=== PATIENT | female | born 1970 | race Asian ===

== ENCOUNTER → 2018-12-29 | Outpatient (CLI) | payer OTHER, SELFPAY ==
[2018-12-29 10:35] LABS: Absolute Lymphocyte Count 1.79 X10^3/uL (0.83-4.51); Absolute Neutrophil Count 4.3 X10^3/uL (2.0-7.7); Basophil# 0.03 X10^3/uL; Basophil% 0.4 % (0-1); Eosinophil# 0.12 X10^3/uL; Eosinophils% 1.8 % (0-5); Hematocrit 45.9 % (37-47); Hemoglobin 15.3 g/dL (12.0-15.0); Lymphocyte # 1.79 X10^3/ul (4.0); Lymphocyte % 26.1 % (19-41); Mean Corp Hgb Conc 33.3 g/dL (32-36); Mean Corpuscular Hgb 30.7 pg (27.0-32.0); Mean Corpuscular Volume 92.2 fL (81-99); Monocyte# 0.63 X10^3/uL; Monocyte% 9.2 % (0-10); NRBC Flagged by Analyzer 0 % (0-5); Neutrophil # 4.26 X10^3/uL (2.7-7.7); Neutrophil % 62.2 % (47-70); Platelet Count 261 K/mm3 (150-450); RBC Distribution Width CV 12.4 % (11.6-14.6); RBC Distribution Width SD 42.3 fl (35.1-43.9); Red Blood Count 4.98 M/mm3 (4.2-5.4); White Blood Count 6.9 K/mm3 (4.4-11.0)
[2018-12-29 11:15] LABS: ALB/GLOB Ratio 1.1 RATIO (0.9-2.4); AST(SGOT) 21 U/L (15-37); Alanine Aminotransfer ALT/SGPT 8 U/L (13-56); Albumin, Serum 3.9 g/dL (3.2-5.0); Alkaline Phosphatase 61 U/L (45-117); Anion Gap 3 (5-15); BUN 14 mg/dL (7-18); BUN/Creat Ratio 16.3 RATIO (10-20); Calcium,Total 8.9 mg/dL (8.5-10.1); Chloride 111 mmol/L (98-107); Creatinine, Serum 0.86 mg/dL (0.55-1.02); EST Glomerular Filtration Rate 75 mL/min (>60); Est Glom Filt Rate - Afr Amer 91 mL/min (>60); Follicle Stimulating Hormone 8.5 mIU/mL; Globulin 3.7 g/dL (2.2-4.2); Glucose 81 mg/dL (74-106); Luteinizing Hormone 14.8 mIU/mL; Potassium 4.5 mmol/L (3.5-5.1); Protein, Total 7.6 g/dL (6.4-8.2); Sodium Level 139 mmol/L (136-145); Thyroid Stim Hormone (TSH) 0.78 uIU/mL (0.358-3.74)
[2018-12-31 09:16] LABS: Vitamin B12 377 pg/mL (211-911)
== END | disposition home or self-care (01) ==
LOC: LAB 09:25
PROVIDERS: Family Provider Family Medicine; PCP Family Medicine; Referring Provider Family Medicine; Visit Provider Family Medicine
DX: N94.6 Dysmenorrhea, unspecified (principal); R53.83 Other fatigue; R10.9 Unspecified abdominal pain
CPT/HCPCS: 36415; 80053; 82306; 82607; 83001; 83002; 84443; 85025; 87086; 87088

== ENCOUNTER → 2019-09-09 15:08 | Outpatient (CLI) | payer OTHER, SELFPAY ==
--- NOTE | 2019-09-09 15:11 | RAD_ITS ---
STUDY: X-RAY - ABDOMEN/PELVIS REASON FOR EXAM: Female, 49 years old. PAIN THROUGHOUT ABDOMEN TECHNIQUE: AP supine and upright views of the abdomen and pelvis. COMPARISON: None. FINDINGS: Normal visualized lung bases. There is an unremarkable bowel gas pattern. There is no demonstrated free abdominal air. The visualized liver, spleen and kidneys are grossly normal in size and morphology. Normal soft tissue structures. Normal visualized osseous structures. RAD/Abd Inc Decub and/or Erect IMPRESSION: Normal x-ray examination of the abdomen and pelvis. Electronically Signed: Mazin Hairston, at 15:34 EDT , Service support ,
[2019-09-09 17:49] LABS: Absolute Lymphocyte Count 1.76 X10^3/uL (0.83-4.51); Absolute Neutrophil Count 5.7 X10^3/uL (2.0-7.7); Basophil# 0.02 X10^3/uL; Basophil% 0.2 % (0-1); Eosinophil# 0.06 X10^3/uL; Eosinophils% 0.7 % (0-5); Hematocrit 43.4 % (37-47); Hemoglobin 14.4 g/dL (12.0-15.0); Lymphocyte # 1.76 X10^3/ul (4.0); Lymphocyte % 21.6 % (19-41); Mean Corp Hgb Conc 33.2 g/dL (32-36); Mean Corpuscular Hgb 30.6 pg (27.0-32.0); Mean Corpuscular Volume 92.1 fL (81-99); Mean Platelet Vol. 9.8 fl (6.2-12.0); Monocyte# 0.61 X10^3/uL; Monocyte% 7.5 % (0-10); NRBC Flagged by Analyzer 0 % (0-5); Neutrophil # 5.66 X10^3/uL (2.7-7.7); Neutrophil % 69.8 % (47-70); Platelet Count 304 K/mm3 (150-450); RBC Distribution Width SD 43.8 fl (35.1-43.9); Red Blood Count 4.71 M/mm3 (4.2-5.4); White Blood Count 8.1 K/mm3 (4.4-11.0)
[2019-09-09 18:17] LABS: Vitamin D,25 Hydroxy 35.3 ng/mL
[2019-09-09 18:26] LABS: Erythrocyte Sedimentation Rate 17 mm/hr (0-20)
[2019-09-09 18:29] LABS: ALB/GLOB Ratio 1.1 RATIO (0.9-2.4); AST(SGOT) 11 U/L (15-37); Alanine Aminotransfer ALT/SGPT 13 U/L (13-56); Alkaline Phosphatase 50 U/L (45-117); Anion Gap 7 (5-15); BUN 11 mg/dL (7-18); BUN/Creat Ratio 12.4 RATIO (10-20); Calcium,Total 9.1 mg/dL (8.5-10.1); Chloride 109 mmol/L (98-107); Creatinine, Serum 0.88 mg/dL (0.55-1.02); EST Glomerular Filtration Rate 73 mL/min (>60); Est Glom Filt Rate - Afr Amer 88 mL/min (>60); Globulin 3.8 g/dL (2.2-4.2); Glucose 91 mg/dL (74-106); Potassium 3.7 mmol/L (3.5-5.1); Protein, Total 7.8 g/dL (6.4-8.2); Sodium Level 140 mmol/L (136-145)
== END ==
PROVIDERS: PCP Family Medicine; Referring Provider Family Medicine; Visit Provider Family Medicine
DX: R10.9 Unspecified abdominal pain (principal); R53.83 Other fatigue
CPT/HCPCS: 36415; 74019; 80053; 82306; 84443; 85025; 85652

== ENCOUNTER → 2021-01-14 12:15 | Outpatient (CLI) | payer OTHER, SELFPAY ==
[2021-01-14 16:10] LABS: Vitamin B12 424 pg/mL (211-911)
[2021-01-14 18:46] LABS: ALB/GLOB Ratio 0.9 RATIO (0.9-2.4); AST(SGOT) 13 U/L (15-37); Alanine Aminotransfer ALT/SGPT 14 U/L (13-56); Albumin, Serum 3.5 g/dL (3.2-5.0); Alkaline Phosphatase 69 U/L (45-117); Anion Gap 5 (5-15); BUN 15 mg/dL (7-18); BUN/Creat Ratio 16.8 RATIO (10-20); Calcium,Total 8.9 mg/dL (8.5-10.1); Chloride 108 mmol/L (98-107); Creatinine, Serum 0.89 mg/dL (0.55-1.02); EST Glomerular Filtration Rate 71 mL/min (>60); Est Glom Filt Rate - Afr Amer 86 mL/min (>60); Follicle Stimulating Hormone 4.7 mIU/mL; Globulin 3.9 g/dL (2.2-4.2); Glucose 86 mg/dL (74-106); Luteinizing Hormone 4.6 mIU/mL; Potassium 4.6 mmol/L (3.5-5.1); Protein, Total 7.4 g/dL (6.4-8.2); Sodium Level 141 mmol/L (136-145); Thyroid Stim Hormone (TSH) 1.38 uIU/mL (0.358-3.74)
== END ==
PROVIDERS: PCP Family Medicine; Referring Provider Family Medicine; Visit Provider Family Medicine
DX: E55.9 Vitamin D deficiency, unspecified (principal); E53.8 Deficiency of other specified B group vitamins; N95.9 Unspecified menopausal and perimenopausal disorder; F43.22 Adjustment disorder with anxiety; Z72.0 Tobacco use
CPT/HCPCS: 36415; 80053; 82306; 82607; 83001; 83002; 84443

== ENCOUNTER → 2021-02-15 | Outpatient (CLI) | payer OTHER, SELFPAY | END | disposition home or self-care (01) | LOC: LABSPEC 10:44 | PROVIDERS: PCP Family Medicine; Visit Provider Family Medicine | DX: Z20.822 Contact with and (suspected) exposure to COVID-19 (principal) | CPT/HCPCS: 87635; U0005; U0003 ==

== ENCOUNTER → 2021-03-11 14:12 | Outpatient (CLI) | payer OTHER, SELFPAY | PROVIDERS: PCP Family Medicine; Visit Provider Physician Assistant | DX: Z11.52 Encounter for screening for COVID-19 (principal) | CPT/HCPCS: 87635; U0005; U0003 ==

== ENCOUNTER 2024-09-05 14:27 | Outpatient (CLI) | payer OTHER, SELFPAY ==
--- NOTE | 2024-09-05 14:30 | RAD_ITS ---
PROCEDURE: ACUTE ABDOMEN INC CHEST 09/05/2024 REASON FOR EXAM: RIGHT ABDOMEN PAIN TECHNIQUE: Single view chest with supine and upright views of the abdomen. COMPARISON: 09/09/2019. FINDINGS: The lungs are expanded. There is no demonstrated parenchymal abnormality. There is no demonstrated pleural abnormality. Normal heart and pericardium. Normal mediastinum and regino. Normal visualized pulmonary arteries. Normal visualized aortic arch and descending thoracic aorta. Normal visualized thoracic spine. Normal visualized ribs, clavicles, and shoulders. There is no demonstrated abnormality of the visualized soft tissue structures of the upper abdomen. There is an unremarkable bowel gas pattern. There is no demonstrated free abdominal air. Normal visualized liver. Normal visualized spleen. Normal visualized kidneys. The soft tissue structures of the pelvis are unremarkable. Mild diffuse spondylosis. RAD/Acute Abdomen Inc Chest IMPRESSION: No evidence for acute abnormality. [facility]
[2024-09-05 18:32] LABS: Anion Gap 13 (5-15); BUN 14 mg/dL (4-19); BUN/Creat Ratio 15.6 RATIO (10-20); Calcium,Total 9.4 mg/dL (7.6-11.0); Carbon Dioxide 20.8 mmol/L (21.0-32.0); Chloride 109 mmol/L (98-108); Cholesterol 195 mg/dL (<=200); Creatinine, Serum 0.88 mg/dL (0.70-1.20); EST Glomerular Filtration Rate 79 (>60); Glucose 61 mg/dL (70-99); High Density Lipoprotein 50 mg/dL; Low Density Lipoprotein Calc. 116 mg/dL; Sodium Level 143 mmol/L (133-145); Triglycerides 144 mg/dL; Very Low Density Lipoprotein 29 mg/dL (5-40); Vitamin B12 664 pg/mL (180-914); Vitamin D,25 Hydroxy 54.1 ng/mL (30-100); cholesterol:hdl ratio screen 3.89
[2024-09-05 18:37] LABS: Hemoglobin 14.6 g/dL (12.0-15.0); Mean Corpuscular Hgb 30.9 pg (27.0-32.0); Mean Corpuscular Volume 91.1 fL (81-99); Mean Platelet Vol. 9.7 fl (6.2-12.0); Platelet Count 264 K/mm3 (150-450); RBC Distribution Width CV 13.2 % (11.6-14.6); RBC Distribution Width SD 44.6 fl (35.1-43.9); Red Blood Count 4.72 M/mm3 (4.2-5.4); White Blood Count 6.5 K/mm3 (4.4-11.0)
[2024-09-05 18:52] LABS: ALB/GLOB Ratio 1.5 RATIO (0.9-2.4); AST(SGOT) 22 U/L (<=31); Alanine Aminotransfer ALT/SGPT 11 U/L (<=34); Albumin, Serum 4.5 g/dL (3.5-5.0); Alkaline Phosphatase 63 U/L (35-104); Anion Gap 13 (5-15); BUN 14 mg/dL (4-19); BUN/Creat Ratio 15.9 RATIO (10-20); Calcium,Total 9.4 mg/dL (7.6-11.0); Carbon Dioxide 20.8 mmol/L (21.0-32.0); Chloride 109 mmol/L (98-108); Creatinine, Serum 0.87 mg/dL (0.70-1.20); EST Glomerular Filtration Rate 80 (>60); Globulin 2.9 g/dL (2.2-4.2); Glucose 61 mg/dL (70-99); Protein, Total 7.3 g/dL (5.9-8.4); Sodium Level 143 mmol/L (133-145); Total Bilirubin 0.38 mg/dL (0.00-1.30)
[2024-09-05 18:53] LABS: CRP < 3.00 mg/L (0.0-3.0)
--- OUTSIDE RECORDS SUMMARY | 2024-09-05 21:17 | XMS RPT_ITS | CCD ---
Author Organization [facility] Care Team Providers Care Clinical Quality Analyst Name Role Phone RONNIE LIND Primary Care RONNIE Seo Attending Unava ilable Allergies Allergy Classification Reported Allergen(s) Allergy Type Date of Onset Reaction(s) Facility (1 source) Acetaminophen; Translations: [ACETAMINOPHEN] Drug Allergy 11-05-19 16 [facility] (1 source) Acetaminophen / oxyCODONE; Translations: [OXYCODONE-ACETAMINO PHEN] Drug Allergy 08-15-19 07 [facility] (1 source) Ibuprofen; Translations: [IBUPROFEN] Drug Allergy 11-05-19 16 [facility] (1 source) Iodine; Translations: [IODINE] Drug Allergy 11-05-19 16 [facility] (1 source) Sulfamethoxazole / Trimethoprim; Translations: [SULFAMETHOXAZOLE-TR IMETHOPRIM] Drug Allergy 07-26-19 07 [facility] (1 source) BEE VENOM PROTEIN (HONEY BEE); Translations: [BEE VENOM PROTEIN (HONEY BEE)] Propensity to adverse reactions to drug (disorder) 12-25-19 22 [facility] (1 source) HOMEOPATHIC PRODUCTS; Translations: [HOMEOPATHIC PRODUCTS] Propensity to adverse reactions to drug (disorder) 07-26-19 07 [facility] (1 source) OTHER; Translations: [OTHER] Propensity to adverse reactions (disorder) 07-26-19 07 [facility] Problems Problem Classification Problem Date Documented Da te Episodic/Chronic Poisoning by nonmedicinal substances (1 source) Toxic effect of venom of bees, accidental (unintentional), initial encounter; Translations: [Bee sting reaction, accidental or unintentional, initial encounter] Onset: 12-24-2021 Episodic Results Test Name Value Interpretation Reference Range Facil ity ED NOTEon 12-24-2021 ED NOTE HNO ID: [id number] Author: Vannessa Rodriguez RN Service: Nursing Author Type: Registered Nurse Type: ED Notes Filed: 12/24/2021 1:14 PM Note Text: Patient leaves pleasant and cooperative, alert and oriented x 3 with regular and easy respirations. Discharge instructions discussed. There are no additional questions for the provider. Medications discussed with patients verbal understanding of purpose and potential side effects. Will follow up as directed or return to ED for worsening or life threatening symptoms. Normal [facility] ED NOTE HNO ID: [id number] Author: Vannessa Rodriguez RN Service: Nursing Author Type: Registered Nurse Type: ED Notes Filed: 12/24/2021 11:47 AM Note Text: Yesterday while patient was working she was stung on her right inner thigh by a yellow jacket at about 0815. Since she has used her kelvin and has taken her benadryl routinely. She had prednisone left from a few years ago so she started taking 50mg yesterday. She also had a dose this morning.The swelling and erythema has gotten worse. Normal [facility] ED PROV NOTEon 12-24-2021 ED PROV NOTE HNO ID: [id number] Author: Ronnie Peters MD Service: Emergency Medicine Author Type: Physician Type: ED Provider Notes Filed: 12/24/2021 12:51 PM Note Text: ED Provider Note Patient Name: Silvana Hankins : 1970 SERVICE DATE: 12/24/21 History Patient presents with: Allergic Reaction Patient presents the emergency department concerns over bee sting allergy to her right inner thigh. Patient states has had bad reactions before. Patient was stung at work yesterday approximate 815 and she notes her symptoms are worsening. Patient has itchy red rash on her right thigh. Patient denies chest pain, difficulty in breathing, change in her voice. Patient's been taking Benadryl every 6 hours, and prednisone left over from approximately 4 or 5 years ago. Allergic Reaction Presenting symptoms: itching, rash and swelling Presenting symptoms: no difficulty breathing, no difficulty swallowing and no wheezing Severity: Mild Duration: 1 day Context: insect bite/sting Relieved by: Nothing Worsened by: Nothing Ineffective treatments: Steroids and antihistamines PAST MEDICAL HISTORY Diagnosis Date ANXIETY Bacterial vaginosis Dysmenorrhea Heavy menses High blood pressure Juvenile osteochondrosis of lower extremity, excluding foot ALEXIS SCHLATTER DISEASE Menorrhagia Miscarriage Pelvic pain in female Urinary tract infection Vaginitis Vulvovaginal candidiasis PAST SURGICAL HISTORY Procedure Laterality Date DELIVERY ONLY , low cervical X2 CHOLEYCYSTOGRAM GALL BLADDER DILATION AND CURETTAGE DXAND/THER NONOBSTETRIC Dilation AND curettage LAPAROSCOPY SURG CHOLECYSTECTOMY 08/04/06 LAPS ABD PRTMANDOMENTUM DX W/WO SPEC BR/WA SPX Laparoscopy MYOMECTOMY 1-4 MYOMAS W/250 GM/< ABDOMINAL APPR UNSPECIFIED ORAL SURGERY PROCEDURE, BY REPORT FAMILY HISTORY Problem Relation Age of Onset Hypertension Mother Asthma Mother other (High blood Pressure) Mother Social History Tobacco Use Smoking status: Every Day Packs/day: 0.50 Types: Cigarettes Last attempt to quit: 09/25/2015 Years since quittin.2 Smokeless tobacco: Never Substance and Sexual Activity Alcohol use: Yes Comment: Occasionally Drug use: No Sexual activity: Yes Partners: Male ALLERGIES Allergen Reactions Bactrim [Sulfametho* Hives Bee Venom Protein (* Rash, Swelling Hayfever [Homeopath* Ibuprofen Unknown Iodine Unknown Percocet [Oxycodone* Seafood [Other] Tylenol [Acetaminop* Unknown Review of Systems Constitutional: Negative for fever. HENT: Negative for facial swelling and trouble swallowing. Respiratory: Negative for cough, choking, chest tightness, shortness of breath, wheezing and stridor. Cardiovascular: Negative for chest pain. Gastrointestinal: Negative for nausea and vomiting. Skin: Positive for itching and rash. All other systems reviewed and are negative. Physical Exam Vitals [12/24/21 1137] BP Pulse Temp Temp src Resp SpO2 Weight Height 151/73 89 36.3 ?C (97.4 ?F) Temporal Art 16 98 % 81.6 kg (180 lb) -- Physical Exam Vitals and nursing note reviewed. Constitutional: General: She is not in acute distress. Appearance: Normal appearance. She is not ill-appearing or toxic-appearing. HENT: Head: Normocephalic and atraumatic. Eyes: General: Right eye: No discharge. Left eye: No discharge. Cardiovascular: Rate and Rhythm: Normal rate and regular rhythm. Pulmonary: Effort: Pulmonary effort is normal. No respiratory distress. Breath sounds: Normal breath sounds. No stridor. No wheezing, rhonchi or rales. Musculoskeletal: Cervical back: Neck supple. No rigidity or tenderness. Lymphadenopathy: Cervical: No cervical adenopathy. Skin: General: Skin is warm and dry. Comments: Inner aspect of patient's right thigh, distal portion just above the knee, she is approximate 19 x 22 cm area of increased erythema, warmth, tenderness, that is slightly raised, there is no satellite lesions, there is no vesicles, there is no discharge, there is no ecchymosis, there is no proximal streaking, it is not circumferential Neurological: General: No focal deficit present. Mental Status: She is alert and oriented to person, place, and time. Mental status is at baseline. Psychiatric: Mood and Affect: Mood normal. Behavior: Behavior normal. Diagnostic Testing ED Labs Ordered and Reviewed - No data to display Procedures ED Course / Clinical Impression Clinical Impressions as of 12/24/21 1247 Bee sting reaction, accidental or unintentional, initial encounter MDM / Disposition / Plan This is a 51-year-old female presents the emergency department with concerns of allergic reaction to a bee sting. Patient's had somewhat significant bee sting allergies in the past, however this is not consistent with anaphylaxis today. Patient was stung yesterday approximate 15 at work. Patient's (more content not included)... Normal [facility] COVID 19, [facility](RT COLLECT )on 03-11-2021 SARS-CoV-2 (COVID-19) RNA MICHAEL+probe Ql (Unsp spec) Not detected Normal Not Detect [facility] Comment on above: Order Comment: Reaso n for Exam: ENCOUNTER FOR COVID SCREENING Result Comment: Norm al Reference Range: Not Detected Method:(RT-PCR) real-time reverse transcriptase PCR [facility] Instrument *The Food and Drug Administration (FDA) has issued an Emergency Use Authorization (EAU) for the [facility] SARS-CoV-2 Assay for the rapid detection of the virus that causes COVID-19. This test has been validated, but the FDAs independent review of this validation is pending. *Negative results do not preclude infection and should not be used as the sole basis for treatment or patient management. Optimum specimen types and timing for peak viral levels during infections caused by SARS-CoV-2 have not been determined. Collection of multiple specimens from the same patient may be necessary to detect the virus. The possibility of a false negative result should be considered if the patient has clinical presentation or has had recent exposure. Performed By: #### L [id number] #### [facility] [address] [place], [place], [id number] COVID 19, [facility](RT COLLECT )on 02-15-2021 SARS-CoV-2 (COVID-19) RNA MICHAEL+probe Ql (Unsp spec) Not detected Normal Not Detect [facility] Comment on above: Result Comment: Norm al Reference Range: Not Detected Method:(RT-PCR) real-time reverse transcriptase PCR [facility] Instrument *The Food and Drug Administration (FDA) has issued an Emergency Use Authorization (EAU) for the [facility] SARS-CoV-2 Assay for the rapid detection of the virus that causes COVID-19. This test has been validated, but the FDAs independent review of this validation is pending. *Negative results do not preclude infection and should not be used as the sole basis for treatment or patient management. Optimum specimen types and timing for peak viral levels during infections caused by SARS-CoV-2 have not been determined. Collection of multiple specimens from the same patient may be necessary to detect the virus. The possibility of a false negative result should be considered if the patient has clinical presentation or has had recent exposure. Performed By: #### L [id number] #### [facility] [address] [place], [place], [id number] Comprehensive Metabolic Prof ilon 2021 Albumin [Mass/Vol] 3.5 g/dL Normal 3.2-5.0 [facility] Comment on above: Performed By: #### L [id number], [id number], [id number], L500.4050, [id number] #### [facility] [address] [place], [address] Albumin/Globulin [Mass ratio] 0.9 {ratio} Normal 0.9-2.4 [facility] Comment on above: Performed By: #### L [id number], [id number], [id number], L500.4050, [id number] #### [facility] [address] [place], [address] ALK P 69 U/L Normal 45-117 [facility] Comment on above: Performed By: #### L [id number], [id number], [id number], L500.4050, [id number] #### [facility] [address] [place], [address] ALT [Catalytic activity/Vol] 14 U/L Normal 13-56 [facility] Comment on above: Performed By: #### L [id number], [id number], [id number], L500.4050, [id number] #### [facility] [address] [place], [address] AST [Catalytic activity/Vol] 13 U/L Low 15-37 [facility] Comment on above: Performed By: #### L [id number], [id number], [id number], L500.4050, [id number] #### [facility] [address] [place], [address] Bilirubin [Mass/Vol] 0.20 mg/dL Normal 0.20-1.00 [facility] Comment on above: Result Comment: For patients on eltrombopag therapy, use of Dimension [place] TBIL is not recommended. Performed By: #### L [id number], [id number], [id number], L500.4050, [id number] #### [facility] [address] [place], [address] BUN/CRE 16.8 RATIO Normal 10-20 [facility] Comment on above: Performed By: #### L [id number], [id number], [id number], L500.4050, [id number] #### [facility] [address] [place], [address] CA,Total 8.9 mg/dL Normal 8.5-10.1 [facility] Comment on above: Performed By: #### L [id number], [id number], [id number], L500.4050, [id number] #### [facility] [address] [place], [address] Chloride [Moles/Vol] 108 mmol/L High 98-107 [facility] Comment on above: Performed By: #### L [id number], [id number], [id number], L500.4050, [id number] #### [facility] [address] [place], [address] CO2 [Moles/Vol] 28.0 mmol/L Normal 21.0-32.0 [facility] Comment on above: Performed By: #### L [id number], [id number], [id number], L500.4050, [id number] #### [facility] [address] [place], [address] Creatinine [Mass/Vol] 0.89 mg/dL Normal 0.55-1.02 [facility] Comment on above: Result Comment: The validity of the calculated GFR GFRAA in patients over 70 years has not been determined. Clinical correlation is essential. Performed By: #### L [id number], L503.0105, [id number], L500.4050, [id number] #### [facility] [address] [place], [address] EST GFR - AA 86 mL/min Normal >60 [facility] Comment on above: Result Comment: Afri can Czech GFR Calc Performed By: #### L [id number], [id number], [id number], L500.4050, [id number] #### [facility] [address] [place], [address] GAP 5 Normal 5-15 [facility] Comment on above: Performed By: #### L [id number], [id number], [id number], L500.4050, [id number] #### [facility] [address] [place], [address] GFR/1.73 sq M.predicted among non-blacks MDRD (S/P/Bld) [Vol rate/Area] 71 mL/min/{1.73_m2} Normal >60 [facility] Comment on above: Result Comment: Non- GFR Calc Performed By: #### L [id number], [id number], [id number], L500.4050, [id number] #### [facility] [address] [place], [address] Globulin (S) [Mass/Vol] 3.9 g/dL Normal 2.2-4.2 [facility] Comment on above: Performed By: #### L [id number], L503.0105, [id number], L500.4050, [id number] #### [facility] [address] [place], [address] Glucose [Mass/Vol] 86 mg/dL Normal 74-106 [facility] Comment on above: Result Comment: Jany alberto note revised GLUCOSE reference range effective 2017. Performed By: #### L [id number], L503.0105, [id number], L500.4050, [id number] #### [facility] [address] [place], [address] Potassium [Moles/Vol] 4.6 mmol/L Normal 3.5-5.1 [facility] Comment on above: Performed By: #### L [id number], L503.0105, [id number], L500.4050, [id number] #### [facility] [address] [place], [address] Sodium [Moles/Vol] 141 mmol/L Normal 136-145 [facility] Comment on above: Performed By: #### L [id number], L503.0105, [id number], L500.4050, [id number] #### [facility] [address] [place], [address] T PROT 7.4 g/dL Normal 6.4-8.2 [facility] Comment on above: Performed By: #### L [id number], [id number], [id number], L500.4050, [id number] #### [facility] [address] [place], [address] Urea nitrogen [Mass/Vol] 15 mg/dL Normal 7-18 [facility] Comment on above: Performed By: #### L [id number], [id number], [id number], L500.4050, [id number] #### [facility] [address] [place], [address] FSH and LHon 2021 FSH 4.7 mIU/mL Normal [facility] Comment on above: Result Comment: NORMAL REFERENCE RANGES FEMALE FOLLICULAR 2.3 - 12.6 mIU/mL MID-CYCLE PEAK 5.2 - 17.5 mIU/mL LUTEAL 1.7 - 12.9 mIU/mL POST-MENOPAUSAL ON MHT 5.9 - 72.8 mIU/mL NOT ON MHT 12.7 - 132.2 mlU/mL MALE 0.7 - 10.8 mIU/mL NEW TEST METHOD REFERENCE RANGES AUGUST 15, 2011 Performed By: #### L [id number], [id number], [id number], L500.4050, [id number] #### [facility] [address] [place], [address] LH 4.6 mIU/mL Normal [facility] Comment on above: Result Comment: NORMAL REFERENCE RANGES FEMALE FOLLICULAR 1.9 - 26.2 mIU/mL MID-CYCLE PEAK 22.8 - 76.1 mIU/mL LUTEAL 0.6 - 16.6 mIU/mL POST-MENOPAUSAL ON MHT 1.1 - 52.4 mIU/mL NOT ON MHT 8.6 - 61.8 mIU/mL MALE 1.2 - 10.6 mIU/mL NEW TEST METHOD REFERENCE RANGES AUGUST 15, 2011 Performed By: #### L [id number], L503.0105, [id number], L500.4050, [id number] #### [facility] [address] [place], [address] Thyroid Stim Hormone (TSH)on 2021 TSH 1.38 uIU/mL Normal 0.358-3.74 [facility] Comment on above: Performed By: #### L [id number], [id number], [id number], L500.4050, [id number] #### [facility] [address] [place], [address] Vitamin B12on 2021 Cobalamin (Vitamin B12) [Mass/Vol] 424 pg/mL Normal 211-911 [facility] Comment on above: Performed By: #### L [id number], [id number], [id number], L500.4050, [id number] #### [facility] [address] [place], [address] Vitamin D,25 Hydroxyon 01-14 Vitamin D 25-OH 30.0 ng/mL Normal [facility] Comment on above: Result Comment: Renuka min D 25(OH) Status Range Deficiency <20 ng/mL (50nmol/L) Insufficiency 20 - 30 ng/mL (50 - 75 nmol/L) Sufficiency 30 - 100 ng/mL (75 - 250 nmol/L) Toxicity >100 ng/mL (>250 nmol/L) Performed By: #### L [id number], L503.0105, [id number], L500.4050, [id number] #### [facility] [place], [address] Encounters Encounter Date Encounter Type Care Provider Facility Start: 12-24-2021 End: 12-24-2021 Emergency department patient visit RONNIE LIND Facility:[facility] Payers Date Payer Category Payer Unknown [id number] Summary Purpose Family History No Family History Records FoundNo Family History Records Found Advance Directives No Advanced Directives Records FoundNo Advanced Directives Records Found Additional Source Comments INFORMATION SOURCE (unrecogn ized section and content) DATE CREATED AUTHOR 03/12/2021 [facility] DATE CREATED AUTHOR AUTHOR'S ORGANIZ ATGABRIEL 12/28/2021 [facility] FOR RECORDS PERTAINING TO PATIENTS WHO ARE OR HAVE BEEN ENROLLED IN A CHEMICAL DEPENDENCY/SUBSTANCEABUSE PROGRAM, SOME INFORMATION MAY BE OMITTED. This clinical summary was aggregated from multiple sources. Caution should be exercised in using it in the provision of clinical care. This summary normalizes information from multiple sources, and as a consequence, information in this document may materially change the coding, format and clinical context of patient data. In addition, data may be omitted in some cases. CLINICAL DECISIONS SHOULD BE BASED ON THE PRIMARY CLINICAL RECORDS. [facility]. provides no warranty or guarantee of the accuracy or completeness of information in this document.
== END 2024-09-05 23:59 | disposition home or self-care (01) ==
LOC: MTLAB 14:29
PROVIDERS: PCP Family Medicine; Referring Provider Family Medicine; Visit Provider Family Medicine
DX: R10.813 Right lower quadrant abdominal tenderness (principal); Z13.220 Encounter for screening for lipoid disorders; Z13.1 Encounter for screening for diabetes mellitus; Z13.29 Encounter for screening for other suspected endocrine disorder; E53.8 Deficiency of other specified B group vitamins; E55.9 Vitamin D deficiency, unspecified
CPT/HCPCS: 36415; 74022; 80048; 80053; 80061; 82306; 82607; 84443; 85027; 86140